=== PATIENT | female | born 1975 | race Two or more races ===

== ENCOUNTER 2024-05-18 14:37 | Emergency (ER) | payer MEDICAID ==
[~2024-05-18] VITALS: Ht 170.2 cm; Wt 87.0 kg
[2024-05-18 14:48] VITALS: O2SAT 98
[2024-05-18 15:29] LABS: HEMOGLOBIN. 13.3 g/dL (12.0-16.0); MEAN CORPUSCULAR HEMOGLOBIN 29.5 pg (28.0-32.0); MEAN CORPUSCULAR HGB CONC 34.1 g/dL (31.0-37.0); MEAN CORPUSCULAR VOLUME 86.5 fL (81.0-99.0); MEAN PLATELET VOLUME 8.7 fl (7.4-10.4); PLATELET 325 x1000/uL (130-400); RED BLOOD CELL COUNT 4.51 mill/uL (4.2-5.4); RED CELL DISTRIBUTION WIDTH 13.4 % (11.6-14.6); WHITE BLOOD COUNT 11.8 x1000/uL (4.5-11.0)
[2024-05-18 15:30] LABS: CHLORIDE 96 mEq/L (98-107); SODIUM 132 mEq/L (136-145)
[2024-05-18 15:31] LABS: CARBON DIOXIDE 30 mEq/L (21-32)
[2024-05-18 15:35] LABS: DIFFERENTIAL COMMENT 1
[2024-05-18 15:36] LABS: CREATININE 0.6 mg/dL (0.6-1.0); GLUCOSE 120 mg/dL (70-105); UREA NITROGEN BLOOD 9 mg/dL (9-23)
[2024-05-18 15:38] LABS: POTASSIUM 2.8 mEq/L (3.5-5.1)
[2024-05-18 15:40] LABS: D-DIMER 0.27 mg/L FEU (<0.50); INR 0.9; PROTHROMBIN TIME 10.4 sec (9.6-11.0)
[2024-05-18 15:43] LABS: TROPONIN I HIGH SENSITIVITY < 4 ng/L (3.0-34)
[2024-05-18] MEDS: SODIUM CHLORIDE 0.9% 1,000 ML IV ONE (15:51)
[2024-05-18 16:12] LABS: CLARITY URINE CLEAR (CLEAR); COLOR URINE YELLOW (YELLOW); GLUCOSE URINE NEGATIVE (NEGATIVE); KETONES URINE NEGATIVE (NEGATIVE); LEUKOCYTE ESTERASE URINE NEGATIVE (NEGATIVE); NITRITE URINE NEGATIVE (NEGATIVE); OCCULT BLOOD URINE NEGATIVE (NEGATIVE); PH URINE 6.5 (4.5-8.0); PROTEIN URINE NEGATIVE (NEGATIVE); SPECIFIC GRAVITY URINE 1.007 (1.005-1.030); UROBILINOGEN URINE 0.2 E.U./dL (0.2-1.0)
[2024-05-18] MEDS: ACETAMINOPHEN 325MG TABLET PO ONE (16:14)
[2024-05-18] MEDS: POTASSIUM CHLORIDE 20MEQ TABLET SR PO ONE (16:14)
[2024-05-18 17:25] LABS: PLATELET ESTIMATE NORMAL
[2024-05-18 17:33] LABS: TROPONIN I HIGH SENSITIVITY < 4 ng/L (3.0-34)
[2024-05-18 19:30] VITALS: TEMP 37.28076
[2024-05-18 19:35] LABS: HCG SCREEN NEGATIVE
[2024-05-18 20:00] VITALS: BP 122/72; PULSE 100; RESP 16; O2SAT 98
[2024-05-18] MEDS ORDERED: IOHEXOL-350 100 ML BOTTLE ONE (23:35)
== END 2024-05-18 20:46 | disposition home or self-care (01) ==
LOC: EDBEDREQ 15:01 → ER 15:18
DX: R07.89 Other chest pain (principal); I10 Essential (primary) hypertension; E78.00 Pure hypercholesterolemia, unspecified
CPT/HCPCS: 80048; 81003; 84703; 83880; 85025; 85379; 85610; 84484; 36415; 71045; 71275; 93005; 96360; 99285; Q9967; Z7610